=== PATIENT | male | born 1960 | race Caucasian/White ===

== ENCOUNTER → 2018-10-20 | Outpatient (CLI) | payer BC ==
[~2018-10-20] MED LIST: CIPRO 500MG TA500 MG PO; FLOMAX 0.40.4 MG/CAP PO; HCTZ 25MG TAB25 MG PO; LIPITOR20 MG PO; NORCO 325 MG-51 TAB PO; ZOFRAN 4MG T4 MG/TAB PO
== END ==
LOC: COL.RAD 13:43
DX: N13.2 Hydronephrosis with renal and ureteral calculous obstruction (principal); N28.1 Cyst of kidney, acquired

== ENCOUNTER 2018-10-21 11:00 | Day surgery (SDC) | payer BC ==
[~2018-10-21] VITALS: Ht 185.4 cm; Wt 104.5 kg
[2018-10-21 11:43] VITALS: BP 125/79; PULSE 71; TEMP 98.2
[2018-10-21] MEDS ORDERED: HCTZ 25MG TAB25 MG PO (11:56)
[2018-10-21] MEDS ORDERED: LIPITOR20 MG PO (11:57)
[2018-10-21] MEDS ORDERED: FLOMAX 0.40.4 MG/CAP PO (11:58)
[2018-10-21] MEDS ORDERED: NORCO 325 MG-51 TAB PO (11:58)
[2018-10-21] MEDS ORDERED: ZOFRAN 4MG T4 MG/TAB PO (11:59)
[2018-10-21] MEDS ORDERED: CIPRO 500MG TA500 MG PO (11:59)
--- NOTE | 2018-10-21 12:00 | NUR ---
TO [facility]VARO AT 1112- CALL LIGHT IN REACH AT BEDSIDE
[2018-10-21 14:40] VITALS: BP 132/79; PULSE 59; TEMP 97.6
--- NOTE | 2018-10-21 14:40 | NUR ---
Patient returned back to [facility] via cart. Alert and oriented. Denies pain, nasuea at this time. VSS, WNL. Patient requesting apple juice at this time. Tolerating well. at bedside. Call varghese within reach, all safety measures in place. Will conitnue to monitor.
[2018-10-21 14:55] VITALS: BP 128/73; PULSE 60
--- NOTE | 2018-10-21 14:55 | NUR ---
Vital signs obtained, WNL. Denies pain at this time. Tolerated apple juice w/o nausea. Will continue to monitor.
[2018-10-21 15:10] VITALS: BP 131/70; PULSE 61
--- NOTE | 2018-10-21 15:10 | NUR ---
Patient states he needs to use restroom. Spontaneous void, peterson blood noted in urine. VSS. States he would like to leave. Discharge instructions reviewed. Verbalizes understanding.
--- NOTE | 2018-10-21 15:45 | NUR ---
Patient wheeled down to lobby via wheel chair. to drive patient home. All safety maintained.
== END 2018-10-21 15:45 | disposition home or self-care (01) ==
LOC: SDCO 11:00
DX: N20.2 Calculus of kidney with calculus of ureter (principal); J30.2 Other seasonal allergic rhinitis; J32.9 Chronic sinusitis, unspecified; E78.5 Hyperlipidemia, unspecified; I10 Essential (primary) hypertension; R73.03 Prediabetes; J30.81 Allergic rhinitis due to animal (cat) (dog) hair and dander; J30.1 Allergic rhinitis due to pollen; Z84.1 Family history of disorders of kidney and ureter
CPT/HCPCS: C1769; C1894; C2617; J0690; J1100; J1885; J2405; J2704; J3010; J7120; Q9967